=== PATIENT | male | born 1970 | race Caucasian/White ===

== ENCOUNTER 2019-07-22 17:04 | Outpatient (CLI) | payer MEDICARE, MEDICAID ==
--- NOTE | 2019-07-23 13:08 | Diagnostic Imaging Report ---
Indication: Cough, infection Technique: 2 views of the chest Comparison: None Findings: Calcific scarring is seen in the left lung apex. Lungs and pleural spaces are clear otherwise. The heart size is normal. The bones are unremarkable. Impression: Negative
== END 2019-07-22 19:04 | disposition home or self-care (01) ==
LOC: RAD 17:04
DX: Z51.89 Encounter for other specified aftercare (principal); R05 Cough; J98.8 Other specified respiratory disorders
CPT/HCPCS: 71046